=== PATIENT | female | born 1955 | race Caucasian/White ===

== ENCOUNTER 2016-08-30 07:30 | Day surgery (SDC) | payer BC ==
[2016-08-30 10:27] LABS: BLOOD UREA NITROGEN 12 mg/dL (7-17); CREATININE 0.7 mg/dL (0.52-1.04); EST GLOMERULAR FILTRATION RATE > 60 ml/min
[2016-08-30] MEDS ORDERED: FENTANYL PF 100MCG/2ML VIAL IV ONE (14:00)
[2016-08-30] MEDS ORDERED: EPHEDRINE SULFATE 50 MG/ML ML IV ONE (14:00)
[2016-08-30] MEDS ORDERED: PROPOFOL 10 MG/ML VIAL IV ONE (14:00)
[2016-08-30] MEDS ORDERED: LIDOCAINE 2% MDV (20MG/ML) 20ML VIAL IV ONE (14:00)
--- NOTE | 2016-09-03 09:50 | Operative Note ---
DATE OF SURGERY: 08/30/16 REFERRING: Titi Sequeira D.O. PREOPERATIVE DIAGNOSES: 1. Heartburn. 2. Intractable left lower quadrant pain. POSTOPERATIVE DIAGNOSES: 1. Normal upper endoscopy. 2. Mild sigmoid diverticulosis. PROCEDURE: ESOPHAGOGASTRODUODENOSCOPY and COLONOSCOPY. Surgeon: Quirino Harrison D.O. PREPARATION QUALITY: Good to excellent. Estimated Blood Loss: None. COMPLICATIONS: None. SPECIMENS: None. PROCEDURE: After informed consent was obtained from the patient, she was placed in the left lateral decubitus position in the Endoscopy Suite, sedated and monitored by the Department of Anesthesia. A well-lubricated GIF-180 gastroscope was placed in the posterior oropharynx and under direct visualization passed to the proximal esophagus. The endoscope was advanced to the proximal, mid and distal esophagus. The GE junction, esophagus, gastric body, antrum, pylorus, duodenal bulb and sweep were unremarkable. J-turn views of the proximal stomach were unremarkable. No ulcers, erosions or mass lesions were seen. The endoscope was straightened and retracted from the patient. No new findings or abnormalities were identified. Digital rectal examination was unremarkable. A well-lubricated PCF-180 colonoscope was inserted into the rectum and advanced to the cecum. Preparation quality was good to excellent. The cecum, ileocecal valve, appendiceal orifice, distal portion of the terminal ileum, ascending colon, transverse colon, descending colon were free of inflammatory changes, mass lesions or polyps. There were a few sigmoid diverticula noted. No inflammation, polyps or mass lesions or strictures were seen. The rectum was unremarkable on forward and in J-turn views. The endoscope was straightened, the rectal ampulla deflated and the endoscope was removed. RECOMMENDATIONS: I suggest the patient follow a high-fiber diet. I will order a CT scan to exclude any other organic issues in the left lower quadrant which may be responsible for her symptoms as there is no endoscopic evidence to explain her pain. The patient should undergo repeat exam in 10 years. As always, thank you for allowing me to participate in the care of your patient. Quirino Harrison DO CC: Titi Sequeira D.O. [facility]
== END 2016-08-30 09:07 | disposition home or self-care (01) ==
LOC: HOP 07:30
PROVIDERS: ATTEND Internal Medicine Gastroenterology
DX: R10.32 Left lower quadrant pain (principal); R12 Heartburn; K57.30 Diverticulosis of large intestine without perforation or abscess without bleeding
CPT/HCPCS: 45378; 43235; 00810; 84520; 82565; J3010

== ENCOUNTER 2017-03-02 15:58 | Emergency (ER) | payer BC ==
[2017-03-02] MEDS ORDERED: IBUPROFEN 600 MG TABLET PO ONE (17:11)
--- NOTE | 2017-03-02 17:13 | Emergency Department Record ---
History of Present Illness - General Chief Complaint: Fall Injury Stated Complaint: FALL INJURY Source: Patient Mode of Arrival: Ambulatory Limitations: No limitations - History of Present Illness Initial Comments: 61 yo female presents after a fall on stairs. She was painting and lost her balance from the third step. She landed on the floor on her left chest. No head or neck injury. No extremity injury. She felt a rib pop in the mid left chest. It hurts to breath. No back pain. Complaint: Fall -: Hour(s) (1) Fall From: Down stairs (#) (3-) When Fall Occurred: Just prior to arrival Place Fall Occurred: Home Loss of Consciousness: None Prolonged Down Time?: No Symptoms Prior to Fall: None Location: Chest Quality: Aching Associated Symptoms: Denies - [place] Coma Scale Eye Response: (4) Open spontaneously Motor Response: (6) Obeys commands Verbal Response: (5) Oriented [place] Total: 15 - Related Data Home Medications Medication Instructions Recorded Confirmed Last Taken Dexlansoprazole [Dexilant] 60 mg PO ASDIR 03/02/17 03/02/17 03/02/17 Latanoprost 0.005% Opth [place] 1 drop EACH EYE QHS 03/02/17 03/02/17 03/01/17 [Xalatan] Naproxen [Naproxen] 500 mg PO ASDIR 03/02/17 03/02/17 03/02/17 Previous Rx's Medication Instructions Recorded Hydrocodone/Acetaminophen [[place] 1 tab PO Q6H PRN #15 tab 03/02/17 5mg/325mg] Allergies Allergy/AdvReac Type Severity Reaction Status Date / Time No Known Drug Allergies Allergy Verified 03/02/17 17:06 Review of Systems Constitutional: Denies: Chills, Fever, Malaise, Weakness Eyes: Denies: Eye discharge ENT: Denies: Congestion, Throat pain Respiratory: Denies: Cough, Dyspnea, Hemoptysis, Stridor, Wheezes Cardiovascular: Reports: Chest pain (left ribs). Denies: Syncope Endocrine: Denies: Fatigue Gastrointestinal: Denies: Abdominal pain, Diarrhea, Nausea, Vomiting Genitourinary: Denies: Dyspareunia, Dysuria, Urgency Musculoskeletal: Denies: Arthralgia, Back pain, Myalgia, Neck pain Skin: Denies: Bruising, Change in color, Rash Neurological: Denies: Headache, Numbness, Weakness Psychiatric: Denies: Anxiety Hematological/Lymphatic: Denies: Blood Clots, Easy bleeding, Easy bruising, Swollen glands Past Medical History - SOCIAL HISTORY Smoking Status: Former smoker - RESPIRATORY Hx Respiratory Disorders: No - CARDIOVASCULAR Hx Cardio Disorders: Yes Comment:: high cholesterol - NEURO Hx Neuro Disorders: No - GI Hx GI Disorders: Yes Hx Abdominal Pain: Yes (LLQ) Hx Reflux: Yes - Hx Genitourinary Disorders: Yes Hx Bladder Problem: Yes (fixed during hysterectomy) - ENDOCRINE Hx Endocrine Disorders: No - MUSCULOSKELETAL Hx Musculoskeletal Disorders: Yes Hx Arthritis: Yes - PSYCH Hx Psych Problems: Yes Hx Anxiety: Yes - HEMATOLOGY/ONCOLOGY Hx Hematology/Oncology Disorders: No Family Medical History Hx Cancer: Mother, Grandparents Hx Dementia: Mother Hx Heart Disease: Grandparents Physical Exam - General General Appearance: Alert, Oriented x3, Cooperative, No acute distress Limitations: No limitations - Head Head exam: Atraumatic, Normocephalic, Normal inspection - Eye Eye exam: Normal appearance, PERRL. negative: Conjunctival injection, Periorbital swelling Pupils: Normal accommodation. negative: Irregular, Unequal - ENT ENT exam: Normal exam, Mucous membranes moist Ear exam: Normal external inspection Nasal Exam: Normal inspection Mouth exam: Normal external inspection - Neck Neck exam: Normal inspection, Full ROM. negative: Meningismus, Tenderness - Respiratory Respiratory exam: Normal lung sounds bilaterally, Chest wall tenderness (mid lateral left chest is tender to palpation). negative: Decreased breath sounds, Prolonged expiratory, Respiratory distress, Rhonchi, Stridor, Wheezes - Cardiovascular Cardiovascular Exam: Regular rate, Normal rhythm, Normal heart sounds. negative : Tachycardia Peripheral Pulses: 2+: Radial (R), Radial (L) - GI/Abdominal GI/Abdominal exam: Soft. negative: Tenderness - Rectal Rectal exam: Deferred - exam: Deferred - Extremities Extremities exam: Normal inspection, Full ROM, Normal capillary refill. negative: Joint swelling, Tenderness - Back Back exam: Reports: Normal inspection, Full ROM. Denies: CVA tenderness (R), CVA tenderness (L), Muscle spasm, Paraspinal tenderness, Rash noted, Tenderness , Vertebral tenderness - Neurological Neurological exam: Alert, Normal gait, Oriented X3, Reflexes normal - Psychiatric Psychiatric exam: Normal affect, Normal mood - Skin Skin exam: Dry, Intact, Normal color, Warm Course - Reevaluation(s) Reevaluation #1: 03/02/17 18:13 The chest XR with ribs was negative for acute process No PTX or fracture She will be DC home with instructions for homecare and reasons to return to the ED Disposition Disposition: Discharge Clinical Impression: Contusion of rib on left side Qualifiers: Encounter type: initial encounter Qualified Code(s): S20.212A - Contusion of left front wall of thorax, initial encounter Disposition: Home, Self-Care Condition: (1) Good Instructions: Rib Contusion (ED) Additional Instructions: Avoid lifting that causes pain Return if worse, short of breath, fever or any concerns Prescriptions: Hydrocodone/Acetaminophen [[place] 5mg/325mg] 1 tab PO Q6H PRN #15 tab PRN Reason: Pain - General Forms: Patient Portal Access Time of Disposition: 18:31 Quality - Quality Measures Quality Measures: N/A - Blood Pressure Screening Does Patient Have Any of the Following: No Blood Pressure Classification: Hypertensive Reading Systolic Measurement: 147 Diastolic Measurement: 69 Screening for High Blood Pressure: < Pre-Hypertensive BP, F/U Documented > [ [id number]] Pre-Hypertensive Follow-up Interventions: Referral to alternative/primary care provider.
--- NOTE | 2017-03-04 09:02 | RADIOLOGY REPORT ---
EXAM: CHEST AND LEFT RIB SERIES HISTORY: PAIN. TECHNIQUE: Frontal view of the chest and four views of the left ribs were obtained. Comparison: None. FINDINGS: The heart size is normal. Osteopenia. The lungs are clear. No pneumothorax. Negative for left rib fracture. IMPRESSION: NO ACUTE CARDIOPULMONARY PROCESS. NEGATIVE FOR LEFT RIB FRACTURE. JOB NUMBER: [id number] MTDD
== END 2017-03-02 18:39 | disposition home or self-care (01) ==
LOC: ER 15:58
DX: S20.212A Contusion of left front wall of thorax, initial encounter (principal); Y93.89 Activity, other specified; Y92.009 Unspecified place in unspecified non-institutional (private) residence as the place of occurrence of the external cause
CPT/HCPCS: 99283